=== PATIENT | male | born 1945 | race Caucasian/White ===

== ENCOUNTER 2018-10-12 07:44 | Emergency (ER) | payer MEDICARE, OTHER ==
--- NOTE | 2018-10-12 08:22 | ER Document Report ---
ED General - General Stated Complaint: RESPIRATORY DISTRESS - HPI Patient complains to provider of: cardiac arrest respiratory arrest Notes: Patient was brought in today undergoing active cardiac and respiratory arrest. According to EMS they were called as the patient woke up this morning not feeling well apparently the patient got up had an episode of vomiting and then collapsible upon EMS arrival was found pulseless and unresponsive ACLS was began patient was intubated and was given epinephrine CPR was started patient did have return of pulses according EMS there are 12-lead EKG shows signs of an anterior WA and were en route to a tertiary PCI center however patient again went to cardiac arrest they diverted to our hospital they were able to obtain pulses yet again however approximately 2-5 minutes prior to arrival patient went again into cardiac arrest. Upon arrival CPR is active patient is being bagged through an ET tube that was placed. Patient has a history of coronary artery disease COPD history of a abdominal aneurysm that has been repaired. Family is currently available states the patient has not been feeling well for the last few days having some pain in his back earlier this morning after the vomiting episode. Patient was placed in the trauma bay and ACLS was continued Past Medical History - Social History Smoking Status: Unknown if Ever Smoked Family History: Reviewed & Not Pertinent Review of Systems - Review of Systems -: Yes ROS unobtainable due to patient's medical condition Physical Exam - Vital signs Interpretation: No: Normal - General General appearance: Unresponsive In distress: Severe - HEENT Head: Normocephalic, Atraumatic Eyes: Normal Conjunctiva: Normal Cornea: Normal Pupils: Fixed - Respiratory Respiratory status: Respiratory distress Breath sounds: Rhonchi - Bilateral breath sounds - Cardiovascular Notes: Carotid and femoral pulses felt during CPR - Abdominal Distension: Distended - Extremities General upper extremity: Normal inspection. No: Normal color - Pill General lower extremity: Normal inspection. No: Normal color - Pale - Skin Skin Temperature: Cool Skin Moisture: Dry Skin Color: Pale Course - Re-evaluation Re-evalutation: 10/12/18 15:50 ACLS was continued here in the ER patient with bilateral breath sounds during bagging. Patient did have distended abdomen with a history of AAA the abdomen did continue to the stent. Ultrasound of the abdomen did show stent in place however the aorta was quite enlarged with some dark area around the aorta. I did review EMSs 12-lead which did not show signs concerning for possible acute WA however also with the patient's distended abdomen and concerned that the patient did have possible rupture. No TPA was given ACLS was continued with administration of CPR and epinephrine. All pulse checks revealed only PEA there is no shockable rhythms during performance of ACLS on the patient. I did update the family multiple times unfortunately after multiple rounds patient continued to be in PEA we did eventually discontinue all aggressive measures pronounced and the patient at 808 - Laboratory Laboratory results interpreted by me: 10/12/18 07:53 POC Glucose 122 H Critical Care Note - Critical Care Note Total time excluding time spent on procedures (mins): 35 Comments: At bedside during patient's cardiac or respiratory arrest performing ACLS protocol Discharge - Discharge Clinical Impression: Cardiac arrest, History of AAA (abdominal aortic aneurysm) repair, Respiratory arrest, CAD (coronary artery disease) Disposition:
[2018-10-12] MEDS ORDERED: EPINEPHRINE INJ 1 MG/10 ML DISP.SYRIN ONE (13:56)
== END 2018-10-12 08:10 | disposition expired ==
LOC: ER 07:44
DX: I46.9 Cardiac arrest, cause unspecified (principal); I25.10 Atherosclerotic heart disease of native coronary artery without angina pectoris; J44.9 Chronic obstructive pulmonary disease, unspecified; R14.0 Abdominal distension (gaseous)
CPT/HCPCS: 99291; 92950; 82962; J0171